=== PATIENT | female | born 1975 | race Caucasian/White ===

== ENCOUNTER 2017-12-28 18:58 | Emergency (ER) | payer BC ==
[2017-12-28] MEDS: predniSONE 20 MG TABLET PO (19:12)
[2017-12-28] MEDS: IPRATRPIUM/ALBUTEROL 0.5/2.5MG 3 ML NEBU. NEB (19:23)
== END 2017-12-28 19:49 | disposition home or self-care (01) ==
LOC: ER 18:58
DX: T78.49XA Other allergy, initial encounter (principal); Z90.710 Acquired absence of both cervix and uterus; X58.XXXA Exposure to other specified factors, initial encounter
CPT/HCPCS: 94640; 99283; J7512; J7620

== ENCOUNTER → 2020-02-22 | Outpatient (CLI) | payer BC ==
[2017-12-28 19:03] VITALS: BP 159/92
[~2020-02-22] MED LIST: ASPI-621 PO; OXYC1TAB15 PO; PRED20TA PO
--- NOTE | 2020-02-22 10:00 | KCIC ---
Examination: Frontal views of the orbits HISTORY: History of pre-MRI protocol COMPARISON: None available. Findings/ impression: No evidence of metallic radiopaque densities identified in the bilateral orbital region. Electronically signed by: Levi Wilkins MD (02/22/2020 9:57 AM) [id number]
--- NOTE | 2020-02-22 10:45 | KCIC ---
Examination: MRI of the right knee without contrast HISTORY: History of right knee pain, injury, pain medial to the patella COMPARISON: None available TECHNIQUE: Multiplanar, multisequence MR imaging of the right knee was performed without contrast. FINDINGS: The anterior cruciate ligament, posterior cruciate ligament appears intact. The medial meniscus, lateral meniscus appears intact. The medial collateral ligament appears intact. The lateral collateral ligamentous complex including the fibular collateral ligament, biceps femoris tendon, popliteus tendon appears intact. The medial retinaculum, lateral retinaculum appears intact. Small knee joint effusion. The extensor mechanism is intact. Mild superficial fraying of cartilage identified medial patellofemoral compartment likely grade I chondromalacia. IMPRESSION: 1. Grade I chondromalacia. 2. Small knee joint effusion. Electronically signed by: Levi Wilkins MD (02/22/2020 10:42 AM) [id number]
== END ==
LOC: KCIC MRI 09:13
PROVIDERS: ATTEND Physician Assistant
DX: M94.261 Chondromalacia, right knee (principal); M25.561 Pain in right knee; M25.461 Effusion, right knee; S89.91XA Unspecified injury of right lower leg, initial encounter
CPT/HCPCS: 70030; 73721